=== PATIENT | male | born 1995 | race Caucasian/White ===

== ENCOUNTER 2017-04-11 13:00 | Day surgery (SDC) | payer OTHER ==
[~2017-04-11] VITALS: Ht 180.3 cm; Wt 77.0 kg
== END 2017-04-11 17:22 | disposition home or self-care (01) ==
LOC: ORSCSDS 13:00
PROVIDERS: Orthopaedic Surgery
PROC: 0PSH04Z Reposition Right Radius with Internal Fixation Device, Open Approach (ICD-10-PCS; principal; 2017-04-11 14:15)
DX: S52.501A Unspecified fracture of the lower end of right radius, initial encounter for closed fracture (principal); S52.614A Nondisplaced fracture of right ulna styloid process, initial encounter for closed fracture; W00.0XXA Fall on same level due to ice and snow, initial encounter; Y93.23 Activity, snow (alpine) (downhill) skiing, snowboarding, sledding, tobogganing and snow tubing
CPT/HCPCS: C1713; J0690; J1100; J1885; J2250; J2270; J2405; J3010; J7120